=== PATIENT | male | born 1955 | race Caucasian/White ===

== ENCOUNTER → 2017-06-22 | Outpatient (CLI) | payer BC, OTHER ==
[~2017-06-22] MED LIST: ASP325T PO; ASP81TEC PO; CATHETER FLUSH 10 ML SYR IV PRN; CLOP75TA PO; COLE1TAB PO; FISH1CAP15 PO; PNT40TEC PO; PRV20T PO; ROSU5TAB PO; SIMV20TA3 PO; UBID1CAP51 PO
[2017-06-22 13:28] VITALS: BP 113/71
[2017-06-22 13:36] VITALS: BP 171/73
--- NOTE | 2017-06-22 18:21 | STRESS TEST ---
DATE OF SERVICE: 06/22/2017 RESTING AND POST EXERCISE TECHNETIUM-99M TETROFOSMIN SPECT CT IMAGING. ORDERING PHYSICIAN: Dr. Noland. PRIMARY CARE PHYSICIAN: Dr. Gonzales. CLINICAL DIAGNOSIS: Coronary artery disease. Baseline images were carried out after injection of 10.54 mCi of technetium-99m tetrofosmin. This was followed by exercise on a treadmill. Joshua protocol was employed. Heart rate and blood pressure responses to exercise were normal to hypertensive. At peak exercise, there is considerable baseline artifact which limits the interpretation of ST segments. In the immediate post-exercise phase, there appears to be [address] segment depression. The patient exercised for a total of 7 minutes and 46 seconds. He attained 94% of maximum predicted heart rate. Test was stopped on account of fatigue. After he had attained 85% of maximum predicted heart rate, 29.7 mCi of technetium-99 tetrofosmin were injected and the exercise was continued for approximately another half a minute. It had to be stopped because the patient was experiencing fatigue and leg discomfort. Review of images at rest and following stress does not indicate any significant perfusion defects consistent with significant myocardial ischemia or infarction. Gated images show normal global left ventricular systolic function with normal regional wall motion. Left ventricular ejection fraction is calculated to be 62%. Left ventricular end diastolic volume is 54 mL. TID is absent (0.82). CONCLUSIONS: 1. No evidence of any significant myocardial ischemia or infarction on this study. 2. Normal regional wall motion. 3. Normal global left ventricular systolic function with a calculated ejection fraction of 62%. 4. Normal left ventricular cavity size. Job ID: [id number] DocumentID: [id number] Dictated Date: 06/22/2017 16:12:21 Joiners Supervisor Date: 06/22/2017 18:20:57 Dictated By: JUAN CARLOS NOLAND MD, MA, FACP, FACC,
== END ==
LOC: CARD 09:47
PROVIDERS: ATTEND Internal Medicine Cardiovascular Disease
DX: I25.10 Atherosclerotic heart disease of native coronary artery without angina pectoris (principal); E78.4 Other hyperlipidemia
CPT/HCPCS: 78452; 93017; 93306

== ENCOUNTER → 2022-02-24 | Outpatient (CLI) | payer MEDICARE, OTHER ==
[~2022-02-24] MED LIST changes: -CATHETER FLUSH 10 ML SYR IV PRN; +CATHETER FLUSH 10 ML SYR IVP PRN; +REGADENOSON 0.4 MG/5 ML SYR (LEXISCAN) IV ONE
[2022-02-24 09:33] VITALS: BP 135/87
--- NOTE | 2022-02-26 08:15 | STRESS TEST ---
DATE OF SERVICE: 02/24/2022 RESTING AND POST REGADENOSON TECHNETIUM-99M TETROFOSMIN SPECT CT IMAGING ORDERING PHYSICIAN: Kim Noland MD, MA, FACP, FACC. PRIMARY PHYSICIAN: Waldemar Gonzales DO CLINICAL DIAGNOSIS: Coronary artery disease. Baseline images were carried out after injection of 10.6 mCi of technetium-99m Tetrofosmin. This was followed by 0.4 mg regadenoson and 29.9 mCi of technetium-99m Tetrofosmin for stress imaging. The patient reported some abdominal discomfort, headache and dizziness following regadenoson infusion, which resolved in a few minutes. Review of images at rest and following stress does not indicate any distinct evidence of myocardial ischemia or infarction. Gated images show normal global left ventricular systolic function with normal regional wall motion. Left ventricular ejection fraction is calculated to be 48%, but subjectively somewhat higher than that. CONCLUSIONS: 1. No evidence of any significant myocardial ischemia or infarction. 2. Normal regional wall motion. 3. Normal global left ventricular systolic function with a calculated ejection fraction of 48%. Ejection fraction subjectively appears to be higher than that. Job ID: [id number] DocumentID: [id number] Dictated Date: 02/26/2022 07:39:59 City Driver Date: 02/26/2022 08:14:21 Dictated By: KIM NOLAND MD, MA, FACP, FACC,
== END ==
LOC: CARD 07:51
PROVIDERS: ATTEND Internal Medicine Cardiovascular Disease
DX: I25.10 Atherosclerotic heart disease of native coronary artery without angina pectoris (principal)
CPT/HCPCS: 78452; 93017; A9502